=== PATIENT | female | born 1995 | race Caucasian/White ===

== ENCOUNTER 2016-09-19 12:39 | Emergency (ER) | payer OTHER ==
[~2016-09-19] VITALS: Ht 170.2 cm; Wt 83.2 kg
[~2016-09-19 12:39] MED LIST: MEDR150D9 IM
[2016-09-19 12:44] VITALS: BP 121/79; PULSE 71; RESP 12; O2SAT 98
--- NOTE | 2016-09-19 12:50 | ED.REPORT ---
HPI-Headache Date of Service Sep 19, 2016 ED Provider: The patient is a 20 year old female with history of migraines, who presents to the emergency department complaining of a right-sided headache that began 8 days ago. She also complains of photophobia, nausea, and bilateral ear pain. She normally take sumatriptan for her migraines but this has not improved her discomfort this time. She was seen at urgent care on Thursday and was treated with Benadryl, a steroid, pain reliever, and Zofran. Her pain was temporarily relieved but returned later in the evening. Yesterday she took ibuprofen with minimal relief. She presents to the emergency department today because her pain has still not resolved. She denies visual changes, numbness or weakness. Nursing Notes Stated Complaint: MIGRAINE Chief Complaint: Headache Nursing Notes Reviewed: Yes Allergies: Coded Allergies: Sulfa (Sulfonamide Antibiotics) (Verified Allergy, Unknown, 10/20/12) Scheduled Medroxyprogesterone Acet (Depo-Provera) 150 Mg/Ml Disp.syrin 150 MG IM [id number] Scheduled PRN Prochlorperazine Maleate (Compazine) 10 Mg Tablet 10 MG PO QID PRN PRN Headache Sumatriptan Succinate (Sumatriptan Succinate) 6 Mg/0.5 Ml Cartridge 6 MG SQ DIRECTED PRN PRN Headache inject at beginning of a migraine, may repeat one time after more than one hour. no more than two doses in 24hrs General Time Seen by MD: 12:50 Chief Complaint Migraine headache Hx Obtained From: Patient Arrived By: Walk-in Sudden in Onset?: No Onset Occurred: More than a week ago... Symptom Duration: Since onset Location: : Frontal right: Occipital right: Parietal right: Temporal right Quality: Painful Severity: Current: Moderate Severity: Maximum: Moderate Recent Healthcare: No recent hospitalization, Recent doctor visit Similar Sx Previous: Yes Past Medical History Past Medical History Migraines Past Surgical History Reports: Appendectomy Family History Noncontributory Smoking History Never Smoker Social History Alcohol Use: Denies alcohol use Other Social History: Local resident Ambulatory Status Independent Review of Systems Eyes: Reports: Photophobia Ears / Nose / Throat: Reports: Earache bilateral GI: Reports: Nausea Neurologic: Reports: Headache, Denies: Focal weakness, Numbness, Vision change Complete sys rev & neg: except as marked. Physical Exam Initial Vital Signs Vital Signs (First) Date Time Temp Pulse Resp B/P Pulse Ox O2 Delivery O2 Flow Rate FiO2 09/19/16 12:44 36.6 71 12 121/79 98 Room Air Initial VS: Reviewed ENT: Mucous membranes moist, Conjunctiva normal, No scleral icterus Respiratory: Breath sounds normal, Clear to auscultation, No respiratory distress Cardiovascular: Regular rate & rhythm, Heart sounds normal, Intact distal pulses Abdomen / GI: Soft, Non-tender, No guarding, No rebound, No distention Lymphatic: No lymphadenopathy Extremities: Vascular intact, Neuro intact, No swelling, No tenderness Skin: Warm, Dry, No cyanosis Psychiatric: Mood/affect normal, Behavior normal, Normal thought content General/Constitutional: Awake, Alert Head / Eyes: Atraumatic, Normocephalic, PERRL, EOMI, No nystagmus, Conjunctiva NL, Temporal arteries NL Neck: Supple, No meningismus, Full range of motion, No swelling, Non-tender, No masses Neurologic: Oriented X3, Speech NL, No motor deficits, No sensory deficits, CN II - XII intact, Cerebellar NL, Memory NL Interpretation & Diagnostics Lab Results Interpretation Test 09/19/16 13:40 Hold Purple Top Tube Received (Received) Hold Blue Top Tube Received (Received) Hold Scenic Top Tube Received (Received) Re-Eval/Medical Decision Med Decision/Clinical Course Headache is unilateral with associated nausea and photophobia, seems consistent with migraines. Significant relief with headache cocktail along with subcutaneous sumatriptan and. We will discharge her with sumatriptan and Compazine. Return and follow-up precautions given. Source of Hx: Old records Re-Evaluation/Progress : Time of Eval: 14:35 Re-Evaluation/Progress Note: Rechecked the patient. She is feeling better. Discussed plan for discharge. All questions were addressed. Counseled Regarding: Diagnosis, Lab results, Need for follow-up, When/why to return to ED Discharge & Departure Impression: Primary Impression: Headache Headache type: unspecified Headache chronicity pattern: acute headache Intractability: intractable Qualified Code: R51 - Headache Disposition: Home Discharge Condition All VS Reviewed: Yes Condition: Stable Patient Instructions: Migraine Headache (ED) Additional Instructions: Thank you for entrusting us with your care today. I am glad you are feeling better. I have prescribed you sumatriptan injections and compazine that you can use as needed for your migraines. Followup with your regular doctor to discuss other options if this medication is not helping your headaches. Return to the emergency department for increased head pain, neck pain, fever, vomiting, or any other new or concerning symptoms. Referrals: Rafa Rodriguez MD (PCP) Scribe Attestation Portions of this note were transcribed by Rebecca Aquino. I, Dr. Magallon personally performed the history, physical exam and medical decision-making; I reviewed and confirmed the accuracy of the information in the transcribed note. Signed by: Nidia Kolb, 09/19/16 at 1500. copies to: Rafa Rodriguez MD, Timothy S DO Sep 19, 2016 12:50 Rebecca Aquino Sep 19, 2016 13:01
[2016-09-19] MEDS ORDERED: 0.9% Sodium Chloride 1,000 ML IV ONE (12:59)
[2016-09-19] MEDS ORDERED: Ketorolac 15 mg/mL Inj IVPUSH ONE (13:00)
[2016-09-19] MEDS ORDERED: ProchlorPERazine 5 mg/mL 2 mL Inj IVPUSH ONE (13:00)
[2016-09-19 14:31] VITALS: BP 125/99; PULSE 71; RESP 20; O2SAT 100
[2016-09-19] MEDS ORDERED: SUMA6KIT2 SQ (14:39)
[2016-09-19] MEDS ORDERED: PROC-4 PO (14:39)
[2016-09-19 14:49] VITALS: BP 122/84; RESP 16; O2SAT 98
== END 2016-09-19 14:52 | disposition home or self-care (01) ==
LOC: SED 12:39
DX: R51 Headache (principal); G43.909 Migraine, unspecified, not intractable, without status migrainosus; H92.03 Otalgia, bilateral; Z88.2 Allergy status to sulfonamides
CPT/HCPCS: 96361; 96372; 96374; 96375; 99284; J0780; J1200; J1885; J3030; J7030